=== PATIENT | female | born 1950 | race Caucasian/White ===

== ENCOUNTER → 2020-12-26 | Outpatient (CLI) | payer OTHER | LOC: SJCVC 12:08 | PROVIDERS: ATTEND Radiology Diagnostic Radiology | DX: R94.31 Abnormal electrocardiogram [ECG] [EKG] (principal); I45.10 Unspecified right bundle-branch block; I77.9 Disorder of arteries and arterioles, unspecified; E78.5 Hyperlipidemia, unspecified; I10 Essential (primary) hypertension; J44.9 Chronic obstructive pulmonary disease, unspecified; K21.9 Gastro-esophageal reflux disease without esophagitis; G47.33 Obstructive sleep apnea (adult) (pediatric); Z79.899 Other long term (current) drug therapy; Z72.89 Other problems related to lifestyle; Z87.891 Personal history of nicotine dependence ==

== ENCOUNTER → 2021-01-04 | Outpatient (CLI) | payer OTHER ==
[~2021-01-04] VITALS: Ht 152.4 cm; Wt 65.8 kg
[~2021-01-04] MED LIST: ASA81BEC PO; CELEXA 20 MG TA20 MG PO; LISINOPRIL10 MG PO; MELOXICAM7.5 MG PO; PROAIR HFA8.5 GM INH; PROVENTIL HFA6.7 G1 INH; ROSUVASTATIN CA10 MG PO; TRELEGY ELLIPT1 EACH INH; VERAPAMIL ER180 M1 PO; VITAMIN D250 MC1 PO
[2021-01-04 08:17] VITALS: BP 198/77
[2021-01-04 17:15] LABS: URINE BILIRUBIN NEGATIVE (Negative); URINE BLOOD TRACE (Negative); URINE CLARITY CLEAR; URINE COLOR YELLOW; URINE GLUCOSE-RANDOM* NEGATIVE (Negative); URINE KETONES NEGATIVE (Negative); URINE LEUKOCYTES-REFLEX NEGATIVE (Negative); URINE NITRITE-REFLEX NEGATIVE (Negative); URINE PROTEIN (DIPSTICK) NEGATIVE (Negative); URINE SPECIFIC GRAVITY <= 1.005 (1.005-1.035); URINE UROBILINOGEN 0.2 E.U./dl (0.2-1.0)
--- NOTE | 2021-01-06 11:58 | CATHLAB ---
[facility] [place] [address] INVASIVE PROCEDURE REPORT Name: ABHIJITVAL LEONARD Room #: REG ALBA Mallory#: [id number] Admission: 01/04/21 Attend Phys: Yahir Knapp MD Discharge: Date of : 46 Report #: [id number] THIS REPORT FOR: cc: Randy Lunsford James L. DO Mancuso, Gerald M. MD [facility] ~ APPROVED REPORT Study performed: 01/04/2021 12:22:52 Patient Details Patient Status: Out-Patient Room #: The patient is a 70 year-old female Event Personnel Lorne Clemens Pigment Grinder, Jessica Pritchett RN RN, Jennifer Durham RTR, Gurinder Brito Ja'net RTR Monitor Procedures Performed Left Heart Cath w/or w/o Coronaries [id number] [facility] Art Access - R femoral artery* [id number] Initial Mod Sed Same Phys/QHP Gr5y 594702 Indication Pre-op clearance Procedure Narrative The patient was brought electively to the Cardiac Catheterization Laboratory and was prepped and draped in a sterile manner. A PINNACLE 6FR Sheath #[id number] sheath was inserted into the RFA 5F^. Coronary angiography was performed using coronary diagnostic catheters. The right coronary system was accessed and visualized with a JR4 catheter. The left coronary system was accessed and visualized with a JL4 catheter. The left ventricle was accessed and visualized with a PIGTAIL catheter. Left ventricular/Aortic Valve gradient assessed via catheter pullback. Left ventriculogram was performed in 30 degree projection. Closure device was deployed with a Fr MYNX CONTROL 6F/7F L#[id number]. The patient tolerated the procedure well and there were no complications associated with the procedure. There was no hematoma. This was a combo case with Dr Knapp. His Fluoro total was 6.3 minutes. His total mGy was 29,741 and total mGycm2 was 28,133. His total Omnipaque usage was 143 ml. [facility] [place] [address] INVASIVE PROCEDURE REPORT Name: VAL WALTON Room #: [facility]#: [id number] Admission: 01/04/21 Attend Phys: Yahir Knapp, Discharge: Date of : 46 Report #: [id number] Intraoperative Conscious Sedation Sedation start time: 11:29 Case end Time: 13:06 Fentanyl 100.0 mcg Versed 1.5 mg Fluoro Time: 7.60 minutes Dose: DAP 95556.50 cGycm2 89670 mGy Contrast Type and Amount: Omnipaque 213 ml Hemodynamics The aortic pressure is 198/79 mmHg with a mean of 129 mmHg. The left ventricular pressure is 211/14 mmHg with a mean of mmHg. The left ventricular end diastolic pressure is 44 mmHg. Pullback from the left ventricle to the aorta revealed no gradient across the aortic valve. Conclusion #1 Normal left ventricular size and systolic function EF 60%. #2 the left main is short widely patent giving rise to LAD and circumflex. #3 the LAD has mild irregularity there is a moderate mid vessel lesion of 50 to 60% and then a smaller attenuated vessel at the apex. No occlusive disease for intervention. #4 circumflex OM nondominant with mild irregularity moderate distribution #5 dominant right coronary artery with minimal irregularity no occlusive disease. Recommendations and plan: Continue aggressive risk factor modification. Recover in holding area patient has had peripheral angiography will proceed with carotid endarterectomy at a later date. <ELECTRONICALLY SIGNED> By: Lorne Clemens MD, FACC 01/06/21 1158 1158 1158 Lorne Clemens MD, FACC /INF
== END | disposition home or self-care (01) ==
LOC: CATH 07:43
PROVIDERS: Surgery Vascular Surgery; ATTEND Nuclear Medicine Nuclear Cardiology
DX: I65.21 Occlusion and stenosis of right carotid artery (principal); I70.1 Atherosclerosis of renal artery; K55.1 Chronic vascular disorders of intestine; M79.604 Pain in right leg; M79.605 Pain in left leg; I10 Essential (primary) hypertension; E78.5 Hyperlipidemia, unspecified; J44.9 Chronic obstructive pulmonary disease, unspecified; K21.9 Gastro-esophageal reflux disease without esophagitis; G47.33 Obstructive sleep apnea (adult) (pediatric); Z98.890 Other specified postprocedural states; Z79.899 Other long term (current) drug therapy; Z87.891 Personal history of nicotine dependence; Z98.41 Cataract extraction status, right eye; Z98.42 Cataract extraction status, left eye; Z96.1 Presence of intraocular lens

== ENCOUNTER → 2021-01-25 | Outpatient (CLI) | payer OTHER ==
[~2021-01-25] MED LIST changes: +ALBUTEROL2.5 MG/31 INH; +BREZTRI AEROS10.7 GM INH; +CITALOPRAM HBR40 MG PO; +EFFIENT10 MG PO; +VENTOLIN HFA 1818 GM INH; +VITAMIN D31250 MC1 PO
[2021-01-25 13:19] LABS: HEMATOCRIT 32.9 % (37.0-47.0); HEMOGLOBIN 10.9 gm/dL (12.0-15.0); MCH 31.9 pg (26.0-34.0); MCHC 33.1 g/dL (28.0-37.0); MCV 96.3 fL (80.0-100.0); RBC 3.41 mil/uL (4.20-5.00); WBC 9.5 thou/uL (4.0-11.0)
[2021-01-25 13:33] LABS: ALBUMIN 3.9 g/dL (3.4-5.0); CREATININE 0.7 mg/dL (0.6-1.0); POTASSIUM 4.2 mmol/L (3.5-5.1); TOTAL BILIRUBIN 0.6 mg/dL (0.2-1.0); TOTAL PROTEIN 7.2 g/dL (6.4-8.2)
[2021-01-25 13:41] LABS: APTT 24.5 Seconds (24.5-32.8); INR 0.93; PROTIME 10.2 Seconds (10.5-12.1)
== END ==
LOC: PAC 11:42
PROVIDERS: Student in an Organized Health Care Education/Training Program; ATTEND Surgery Vascular Surgery
DX: Z01.812 Encounter for preprocedural laboratory examination (principal); R07.9 Chest pain, unspecified; Z20.822 Contact with and (suspected) exposure to COVID-19

== ENCOUNTER 2021-01-29 06:20 | Inpatient (IN) | payer OTHER ==
[~2021-01-29] VITALS: Ht 152.4 cm; Wt 67.1 kg
[2021-01-29] VITALS (11 sets, daily range): BP systolic 99–148; BP diastolic 38–62
--- NOTE | ~2021-01-29 | O ---
[facility] [place] [address] OPERATIVE REPORT Name: VAL WALTON Room #: 150-3 ADM IN M.R.#: [id number] Admission: 01/29/21 Attend Phys: Burak Mathews MD Discharge: Date of : 46 Report #: [id number] THIS REPORT FOR: cc: Randy Lunsford James L. DO Forman,Burak Abbott MD ~ DATE OF SERVICE: 01/29/2021 PREOPERATIVE DIAGNOSIS: Right carotid artery stenosis. POSTOPERATIVE DIAGNOSIS: Right carotid artery stenosis. OPERATION: Right carotid endarterectomy with patch closure. SURGEON: Burak Mathews MD. [employer]: GWEN Mena (Jeremy). ANESTHESIA: General. INDICATIONS: The patient is a 70-year-old who presents with left-sided amaurosis fugax. Ultimately, carotid arteriography demonstrated a 90% right internal carotid stenosis. Left carotid has approximately 50% lesion. FINDINGS AND TECHNIQUE: After general anesthesia was established, an oblique right neck incision was made. Common facial vein was divided. Common internal and external carotid artery and the superior thyroid artery were identified and controlled. 10,000 units of heparin were given. When the carotid vessels were occluded, there was some diminution in the EEG waveforms. Continuous electroencephalographic monitoring was performed during the operation. A carotid arteriotomy was made. A shunt was placed and the EEG waveforms returned to normal. With the shunt in place, the endarterectomy was performed. Neointima was inspected and all loose debris was removed. Tacking sutures were placed at the transition zone. When the endarterectomy was deemed to be satisfactory, the arteriotomy was closed with running Prolene and a thin-walled pericardial patch. Prior to finishing the closure, the carotid vessels were backbled, shunt was removed, artery was irrigated with heparinized irrigation. Flow was established first through the external and then the internal carotid [facility] [address] [place] [address] OPERATIVE REPORT Name: VAL WALTON Room #: 150-3 ADM IN ..#: [id number] Admission: 01/29/21 Attend Phys: Burak Mathews MD Discharge: Date of : 46 Report #: [id number] artery. Protamine was given to reverse the heparin. When hemostasis was satisfactory, Shonna drain was brought out through the bottom pole of the incision. The wound was closed in layers. The patient was taken to the recovery area in good condition where the neurologic progress was monitored. All counts were reported as correct. By: [id number] Burak Mathews MD /nt
[2021-01-30] VITALS (11 sets, daily range): BP systolic 94–141; BP diastolic 34–59
[2021-01-30 06:34] LABS: HEMATOCRIT 24.4 % (37.0-47.0); HEMOGLOBIN 8.1 gm/dL (12.0-15.0); MCH 32.2 pg (26.0-34.0); MCV 97.5 fL (80.0-100.0); RBC 2.51 mil/uL (4.20-5.00); RDW 12.7 % (10.5-14.5)
[2021-01-30 06:35] LABS: CALCIUM 7.8 mg/dL (8.5-10.1); CREATININE 0.6 mg/dL (0.6-1.0); POTASSIUM 4.5 mmol/L (3.5-5.1)
--- NOTE | 2021-01-30 09:16 | NUR ---
INITIAL ASSESSMENT: SW reviewed chart and spoke with nursing and attending physician. Pt was admitted from home. Pt is s/p right carotid endarterectomy with patch closure. Pt is in ICU and will transfer to CCU when a bed is available. SW met with pt at bedside. Introduced role of SW. Pt is alert/orientated x 4. Pt reports she lives at home with her . They reside in [place]. Prior to admission, pt was independent with ADLs. There are 4 steps to enter their home. No steps inside. Pt is able to ambulate short distances independently. Pt has a w/c to use for long distances. Pt has home O2 in place through [facility]. Pt is normally on 3L of O2 at home. No hx of HH services or post-acute placement. Pt's PCP is Dr. Randy Lunsford. Plan is for pt to discharge home when medically stable. SW is following to assist as needed with discharge planning.
[2021-01-30] MEDS ORDERED: LISINOPRIL10 MG PO (14:28)
[2021-01-30] MEDS ORDERED: TRELEGY ELLIPT1 EACH INH (14:36)
--- NOTE | 2021-01-30 16:29 | NUR ---
REPORT GIVEN TO MEDIA CLERK TERESIA. PT ALERT AND ORIENTED X3. PT NOT COMPLAINING OF ANY PAIN AND HEADACHE. PT HAS NOT VOIDED SINCE THE REMOVAL OF WONG. PT IS STANDBY ASSIST WITH WALKER. PT BLOOD PRESSURE SYSTOLIC ABOVE 100 AND MAP ABOVE 60 AND HEART RATE 57 PRIOR TRANSFERING OUT TO CCU. AT BEDSIDE. WAS SHOWN WAY TO CCU FROM ENTRANCE D AND WAS GIVEN CCU PHONE NUMBER. CONTINUE TO MONITOR.
[2021-01-31 03:49] VITALS: BP 115/49
[2021-01-31 05:27] LABS: BASOPHILS 0.1 % (0.0-2.0); EOSINOPHILS 0.1 % (0.0-3.0); HEMATOCRIT 24.4 % (37.0-47.0); HEMOGLOBIN 8.2 gm/dL (12.0-15.0); LYMPHOCYTES 10.9 % (24.0-44.0); MCH 32.7 pg (26.0-34.0); MCHC 33.5 g/dL (28.0-37.0); MCV 97.8 fL (80.0-100.0); MONOCYTES 9.9 % (1.0-8.0); PLATELET COUNT 175 thou/uL (150-400); RBC 2.49 mil/uL (4.20-5.00); RDW 13.3 % (10.5-14.5); WBC 7.5 thou/uL (4.0-11.0)
[2021-01-31 05:47] LABS: CREATININE 0.9 mg/dL (0.6-1.0); MAGNESIUM 1.9 mg/dL (1.8-2.4)
--- NOTE | 2021-01-31 06:22 | NUR ---
PATIENTS CARES WHERE ASSUMED AT SHIFT CHANGE. PATIENT WAS ASSESSED AND MEDS WHERE PASSED. THIS SHIFT FOR HER HAS BEEN UNEVENTFUL. SHE HAD NO PROBLEMS OR CONCERNS. NO CALLS FOR NEEDS. SHE DID SLEEP MOST OF THIS SHIFT. ROUNDS WHERE DONE. THE BED IS IN A LOW AND LOCKED POSITION
[2021-01-31 07:00] VITALS: BP 140/54
--- NOTE | 2021-01-31 10:30 | PATH ---
[facility] [address] [place] [address] PATHOLOGY RPT PROCEDURE Name: VIKTORIYA ESPARZA Room #: 210-P ADM IN M.R.#: [id number] Admission: 01/29/21 Date of : 46 Discharge: Report #: [id number] Path Case #: [id number] [facility] Accession Number: [id number] . 01 Material submitted: . artery - RIGHT CAROTID PLAQUE. Modifiers: right . 01 Clinical history: . CAROTID ENDARTERECTOMY (+++) CAROTID STENOSIS . 01 Diagnosis: Portion of vessel "right carotid plaque, endarterectomy": - Atherosclerosis and calcification with luminal narrowing. (SHA:pit; 01/30/2021) QTP 01/30/2021 1459 Local . 01 Electronically signed: . Ishan Perea MD, Pathologist NPI- [id number] . 01 Gross description: . The specimen is received in formalin, labeled "Viktoriya Esparza, right carotid plaque" and consists of a fox to pale yellow cylindrical tissue (2.6 cm in length by 0.8 cm diameter) and sectioning reveals markedly stenotic mckeon measuring up to 0.5 cm thick. The endothelium is yellow, dusky and roughened. The luminal diameter is focally narrowed down to 0.1 cm. Camp Manager sections are submitted in A1 following decalcification.(JENA; 01/29/2021) DKA/DKA 01/29/2021 1513 Local . 01 Pathologist provided ICD-10: I65.21 . 01 CPT . 581827, [id number] Specimen Comment: A courtesy copy of this report has been sent to [phone], [phone] Specimen Comment: [phone] Specimen Comment: Report sent to / DR LUZ Specimen Comment: A duplicate report has been generated due to demographic updates. Performed at: [address], [place], [place] [id number] MD Ishan Perea MD Phone: [phone]
[2021-01-31 11:08] VITALS: BP 140/54
--- NOTE | 2021-01-31 12:20 | NUR ---
PT WAS DISCHARGED. DISCHARGE INSTRUCTION GIVING TO PT AND SPOUSE, APPOINTMENTS AND MEDICATIONS [employer] [place]. PT STATED SHE UNDERSTOOD AND HAD NO FURTHER QUESTIONS. PT WAS WHEELED OUT VIA WHEEL CHAIR BY TECH TO SPOUSE'S VEHICLE.
== END 2021-01-31 15:40 | disposition home or self-care (01) | DRG 38 ==
LOC: PRE → 2N 06:20 → ICU 06:20 → TBA 06:20 → OR 07:15 → PRE 10:20 → EDSTATUS 11:33 → ICU 13:08 → 2N 01-30 15:21
PROVIDERS: Nurse Practitioner; Physician Assistant; ADMIT Surgery Vascular Surgery; ATTEND Surgery Vascular Surgery
PROC: 03CK0ZZ Extirpation of Matter from Right Internal Carotid Artery, Open Approach (ICD-10-PCS; principal; 2021-01-29)
PROC: 03UK0KZ Supplement Right Internal Carotid Artery with Nonautologous Tissue Substitute, Open Approach (ICD-10-PCS; principal; 2021-01-29)
PROC: 5A09357 Assistance with Respiratory Ventilation, Less than 24 Consecutive Hours, Continuous Positive Airway Pressure (ICD-10-PCS; 2021-01-30)
PROC: 5A09357 Assistance with Respiratory Ventilation, Less than 24 Consecutive Hours, Continuous Positive Airway Pressure (ICD-10-PCS; 2021-01-31)
DX: I65.21 Occlusion and stenosis of right carotid artery (principal); E87.1 Hypo-osmolality and hyponatremia; I10 Essential (primary) hypertension; E78.5 Hyperlipidemia, unspecified; J44.9 Chronic obstructive pulmonary disease, unspecified; M19.90 Unspecified osteoarthritis, unspecified site; F32.9 Major depressive disorder, single episode, unspecified; M81.0 Age-related osteoporosis without current pathological fracture; K59.09 Other constipation; G47.30 Sleep apnea, unspecified; Z88.8 Allergy status to other drugs, medicaments and biological substances; Z98.41 Cataract extraction status, right eye; Z91.041 Radiographic dye allergy status; Z79.82 Long term (current) use of aspirin; Z79.899 Other long term (current) drug therapy; Z98.42 Cataract extraction status, left eye; Z28.21 Immunization not carried out because of patient refusal
CPT/HCPCS: 10078; 10204; 10797; 47375; 50010; 50101; 50386; 50403; 50455; 51301; 51471; 52287; 54118; 56524; 56526; 56528; 56534; 57254; 58585; 58731; 62110; 62900; 65020; 65040; 70005

== ENCOUNTER → 2021-03-29 | Outpatient (CLI) | payer OTHER | LOC: SJCVCIMAG 08:37 | PROVIDERS: ATTEND Nuclear Medicine Nuclear Cardiology | DX: I65.23 Occlusion and stenosis of bilateral carotid arteries (principal); I77.9 Disorder of arteries and arterioles, unspecified; K55.1 Chronic vascular disorders of intestine; I10 Essential (primary) hypertension; J44.9 Chronic obstructive pulmonary disease, unspecified; E78.00 Pure hypercholesterolemia, unspecified; G47.33 Obstructive sleep apnea (adult) (pediatric); K21.9 Gastro-esophageal reflux disease without esophagitis; E78.5 Hyperlipidemia, unspecified; Z99.81 Dependence on supplemental oxygen; Z87.891 Personal history of nicotine dependence; Z72.89 Other problems related to lifestyle; Z88.8 Allergy status to other drugs, medicaments and biological substances; Z79.82 Long term (current) use of aspirin; Z79.899 Other long term (current) drug therapy; Z82.49 Family history of ischemic heart disease and other diseases of the circulatory system ==